=== PATIENT | female | born 1955 | race African-American/Black ===

== ENCOUNTER 2016-06-22 04:11 | Emergency (ER) | payer OTHER, BC ==
[~2016-06-22] VITALS: Ht 165.1 cm; Wt 126.5 kg
--- NOTE | ~2016-06-22 | EKG ---
[facility] [place] [address] ELECTROCARDIOGRAM REPORT Name: LIANA ARREAGA Room #: YAMINI Montoya#: [id number] Admission: 06/22/16 Attend Phys: Discharge: 06/22/16 Date of : 53 Report #: [id number] THIS REPORT FOR: //name// 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
[~2016-06-22 04:11] MED LIST: AMLODIPINE BESY10 MG PO; ASPIRIN325 PO; CARAFATE 1 GM TA1 G1 PO; COZAAR 50 MG TA50 M2 PO; LABETALOL HCL100 MG PO
[2016-06-22 04:54] LABS: ABSOLUTE NEUTROPHILS 6.2 thou/uL (1.4-8.2); BASOPHILS 0.8 % (0.0-2.0); EOSINOPHILS 0.2 % (0.0-3.0); HEMATOCRIT 37.4 % (37.0-47.0); HEMOGLOBIN 12.5 gm/dL (12.0-15.0); LYMPHOCYTES 13.1 % (24.0-44.0); MCH 32.5 pg (26.0-34.0); MCHC 33.3 g/dL (28.0-37.0); MCV 97.6 fL (80.0-100.0); MONOCYTES 3.2 % (1.0-8.0); PLATELET COUNT 256 thou/uL (150-400); POLYS 82.7 % (36.0-66.0); RBC 3.84 mil/uL (4.20-5.00); RDW 12.8 % (10.5-14.5); WBC 7.4 thou/uL (4.0-11.0)
[2016-06-22 04:59] LABS: MANUAL DIFF NO
[2016-06-22 05:03] LABS: URINE BILIRUBIN NEGATIVE (Negative); URINE BLOOD 3+ (Negative); URINE COLOR YELLOW; URINE GLUCOSE-RANDOM* NEGATIVE (Negative); URINE KETONES 1+ (Negative); URINE LEUKOCYTES-REFLEX 1+ (Negative); URINE PROTEIN (DIPSTICK) NEGATIVE (Negative)
[2016-06-22 05:04] LABS: CALCIUM 10.2 mg/dL (8.5-10.1); CREATININE 0.8 mg/dL (0.6-1.3); POTASSIUM 3.1 mmol/L (3.5-5.1)
[2016-06-22 05:08] LABS: ALBUMIN 3.9 g/dL (3.4-5.0); TOTAL BILIRUBIN 0.6 mg/dL (<0.1-1.0); TOTAL PROTEIN 7.9 g/dL (6.4-8.2)
[2016-06-22 05:26] LABS: CASTS None Seen /LPF (None Seen); CRYSTALS None Seen /LPF (None Seen); SQUAMOUS 4-10 Moderate /LPF (0-3)
[2016-06-22 05:27] LABS: URINE WBC-REFLEX 0-5 Rare /HPF (0-5)
[2016-06-22] MEDS ORDERED: NEXIUM40 MG PO ×2 (06:27→06:37)
[2016-06-22] MEDS ORDERED: ZOFRAN ODT4 MG PO ×2 (06:27→06:37)
[2016-06-22] MEDS ORDERED: PERCOCET 5-3251 EACH PO ×2 (06:27→06:37)
[2016-06-22 06:36] VITALS: BP 119/58
== END 2016-06-22 06:46 | disposition home or self-care (01) ==
LOC: EDBD 04:11 → ER 04:11
PROVIDERS: Emergency Medicine
DX: R10.10 Upper abdominal pain, unspecified (principal); R10.13 Epigastric pain; R11.2 Nausea with vomiting, unspecified; I10 Essential (primary) hypertension; Z88.0 Allergy status to penicillin

== ENCOUNTER 2016-10-19 00:06 | Emergency (ER) | payer OTHER, BC ==
[~2016-10-19] VITALS: Ht 162.6 cm; Wt 113.4 kg
--- NOTE | ~2016-10-19 | EKG ---
[place] [address] [place] [address] ELECTROCARDIOGRAM REPORT Name: LIANA ARREAGA [id number] Admission: 10/19/16 Attend Phys: Discharge: 10/19/16 Date of : 53 Report #: [id number] THIS REPORT FOR: //name// 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 : 1955 Requested By: Sreekanth Leigh Order Number: [id number] MD: Rei Moran Measurements Intervals [place] Rate: 83 P: 41 [place]: 193 QRS: -2 QRSD: 88 T: -26 QT: 368 QTc: 433 Interpretive Statements Sinus rhythm Left ventricular hypertrophy Borderline T abnormalities, diffuse leads Compared to ECG 06/22/2016 04:26:12 T-wave abnormality now present Electronically Signed On 10-19-2016 11:00:22 CDT by Rei Moran [email or web address] <ELECTRONICALLY SIGNED> By: Rei Moran MD, [facility] 10/19/16 [id number] Rei Mroan MD, [facility] /EPI
[~2016-10-19 00:06] MED LIST changes: +NEXIUM40 MG PO; +PERCOCET 5-3251 EACH PO; +ZOFRAN ODT4 MG PO
[2016-10-19 01:45] LABS: ABSOLUTE NEUTROPHILS 6.8 thou/uL (1.4-8.2); BASOPHILS 0.9 % (0.0-2.0); EOSINOPHILS 0.8 % (0.0-3.0); HEMATOCRIT 37.5 % (37.0-47.0); HEMOGLOBIN 12.5 gm/dL (12.0-15.0); LYMPHOCYTES 14.2 % (24.0-44.0); MCH 32.1 pg (26.0-34.0); MCHC 33.4 g/dL (28.0-37.0); MCV 96.2 fL (80.0-100.0); MONOCYTES 4.2 % (1.0-8.0); PLATELET COUNT 257 thou/uL (150-400); POLYS 79.9 % (36.0-66.0); RDW 13.3 % (10.5-14.5); WBC 8.5 thou/uL (4.0-11.0)
[2016-10-19 01:50] LABS: MANUAL DIFF NO
[2016-10-19 02:07] LABS: ANION GAP 11 mmol/L (7-16); BUN 20 mg/dL (7-18); CALCIUM 10.3 mg/dL (8.5-10.1); CHLORIDE 100 mmol/L (98-107); CO2 27 mmol/L (21-32); CREATININE 0.8 mg/dL (0.6-1.0); GLUCOSE 154 mg/dL (74-106); POTASSIUM 3.3 mmol/L (3.5-5.1); SODIUM 138 mmol/L (136-145)
[2016-10-19 02:13] LABS: ALBUMIN 4.2 g/dL (3.4-5.0); ALKALINE PHOSPHATASE 101 U/L (46-116); SGOT 26 U/L (15-37); SGPT 27 U/L (30-65); TOTAL BILIRUBIN 0.7 mg/dL (<0.1-1.0); TOTAL PROTEIN 8.4 g/dL (6.4-8.2); TROPONIN-I < 0.04 ng/mL (<0.04-0.07)
[2016-10-19] MEDS ORDERED: ZOFRAN ODT8 MG PO (03:39)
[2016-10-19] MEDS ORDERED: NORCO 5-325 TA1 EACH PO (03:39)
[2016-10-19 04:08] VITALS: BP 129/63
== END 2016-10-19 04:10 | disposition home or self-care (01) ==
LOC: ER 00:06
PROVIDERS: Emergency Medicine
DX: K57.90 Diverticulosis of intestine, part unspecified, without perforation or abscess without bleeding (principal); I10 Essential (primary) hypertension; Z96.653 Presence of artificial knee joint, bilateral; Z88.0 Allergy status to penicillin; Z98.84 Bariatric surgery status